=== PATIENT | female | born 2000 | race Caucasian/White ===

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

== ENCOUNTER 2021-12-11 13:33 | Emergency (ER) | payer OTHER ==
[2021-12-11 14:10] VITALS: TEMP 98.3
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
[2021-12-11] MEDS ORDERED: SODIUM CHLORIDE 0.9% 1,000 ML IV STA (16:35)
[2021-12-11] MEDS ORDERED: traMADol 50 MG TAB PO STA (16:37)
[2021-12-11] MEDS ORDERED: BEBTELOVIMAB (EUA) 175 MG/2 ML VIAL IV ONE (18:00)
[2021-12-11 18:24] VITALS: BP 124/62; PULSE 87; RESP 18
== END 2021-12-11 18:24 | disposition home or self-care (01) ==
LOC: EC 13:33
DX: U07.1 COVID-19 (principal); H92.01 Otalgia, right ear; J45.909 Unspecified asthma, uncomplicated
CPT/HCPCS: 87635; 96360; 99284

== ENCOUNTER 2022-02-26 07:42 | Emergency (ER) | payer OTHER ==
[2022-02-26 07:46] VITALS: BP 127/73; PULSE 79; RESP 16; TEMP 98.5
--- NOTE | 2022-02-26 08:35 | XR ---
EXAMINATION TYPE: XR chest 2V DATE OF EXAM: 02/26/2022 COMPARISON: NONE TECHNIQUE: PA and lateral views submitted. HISTORY: Cough FINDINGS: The lungs are clear and there is no pneumothorax, pleural effusion, or focal pneumonia. Heart size normal. Slightly coarsened interstitium although there is reduced inspiration. Scoliotic curvature of the spine. No overt failure. IMPRESSION: 1. Central interstitial prominence could be related to reduced inspiration correlate clinically to ex clude an interstitial pneumonitis or bronchitis..
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
== END 2022-02-26 09:09 | disposition home or self-care (01) ==
LOC: EC 07:42
DX: J45.909 Unspecified asthma, uncomplicated (principal); J06.9 Acute upper respiratory infection, unspecified; F17.290 Nicotine dependence, other tobacco product, uncomplicated; F12.90 Cannabis use, unspecified, uncomplicated; Z79.51 Long term (current) use of inhaled steroids; Z79.899 Other long term (current) drug therapy; Z20.822 Contact with and (suspected) exposure to COVID-19
CPT/HCPCS: 71046; 87635; 99284

== ENCOUNTER → 2022-10-01 | Outpatient (CLI) | payer OTHER ==
--- NOTE | 2022-10-01 16:10 | US ---
EXAMINATION TYPE: US OB >= 14 wk fetus DATE OF EXAM: 10/01/2022 COMPARISON: None CLINICAL INDICATION: Female, 21 years old with history of Z36.89 CONFIRM GESTATIONAL AGE AND VIABILIT Y; Viability. . TECHNIQUE: Transabdominal (TA) GESTATIONAL AGE / DATING Physician Established: Not yet established Dates by LMP: (15 weeks/3 days) EDC: 03/22/2023 Dates by First Scan: This is first scan Dates by Current Scan: (15 weeks/3 days) EDC: 03/22/2023 SURVEY IUP: Single PLACENTA: Anterior-Fundal PREVIA: No Previa HEYDI: 11.8 cm Normal CERVICAL LENGTH (transabdominal: norm > 3.0cm): 3.4 cm BIOMETRY PRESENTATION: Breech BPD: 2.8 cm 15 weeks / 1 day HC: 10.8 cm 15 weeks / 2 days AC: 9.4 cm 15 weeks / 4 days FL: 1.8 cm 15 weeks / 3 days ESTIMATED WEIGHT IN GRAMS: 123 grams ESTIMATED WEIGHT IN LBS/OZ: 0 lbs. 4 oz. WEIGHT PERCENTAGE BASED ON ESTABLISHED DATES: 37% HC/AC: 1.15 Normal FL/AC: 19% HEART RATE: 146 bpm RHYTHM: Normal MATERNAL WALL MEASUREMENT: 4.1 cm from skin to anterior uterine wall (if exam limited due to body hab itus). *Limited head imaging due to position and patient body habitus. IMPRESSION: 1. Single live intrauterine with estimated gestational age of 15 weeks 3 days by LMP. Curre nt ultrasound biometry is exactly concordant. 2. EFW percentile at 37%. 3. Complete survey recommended at 18-20 weeks.
== END | disposition home or self-care (01) ==
LOC: RADUSWWP 14:56
PROVIDERS: ATTEND Obstetrics & Gynecology
DX: Z36.89 Encounter for other specified antenatal screening (principal); Z3A.16 16 weeks gestation of pregnancy
CPT/HCPCS: 76805

== ENCOUNTER 2023-03-20 06:00 | Inpatient (IN) | payer OTHER ==
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
[2023-03-20] MEDS ORDERED: METHYLERGONOVINE 0.2 MG/ML 1 ML AMP IM PRN ×2 (06:30→07:56)
[2023-03-20] MEDS ORDERED: LACTATED RINGERS 1,000 ML IV SCH (06:30)
[2023-03-20] MEDS ORDERED: miSOPROStoL 200 MCG TAB PO PRN ×2 (06:30→07:56)
[2023-03-20] MEDS ORDERED: CARBOPROST TROMETHAMINE 250 MCG/ML 1 ML AMP IM PRN ×2 (06:30→07:56)
[2023-03-20] MEDS ORDERED: TRANEXAMIC 1,000 MG/100ML-NACL 1,000 MG in EMPTY BAG 1 BAG IV PRN ×2 (06:30→07:56)
[2023-03-20] MEDS ORDERED: LIDOCAINE 0.5% (PF) 5 MG/ML (50 ML SDV) SQ PRN ×2 (06:30→07:56)
[2023-03-20] MEDS ORDERED: OXYTOCIN 10 UNIT/ML 1 ML VIAL IM PRN ×2 (06:30→07:56)
[2023-03-20] MEDS ORDERED: TERBUTALINE 1 MG/ML VIAL SQ PRN ×2 (06:30→07:56)
[2023-03-20] MEDS ORDERED: OXYTOCIN 30 UNITS/500 ML NS 30 UNIT in SALINE 1 500ML.BAG IV SCH ×2 (06:30→07:56)
[2023-03-20 06:43] LABS: Basophils % (A) 0 %; Eosinophils # (A) 0.1 k/uL (0-0.7); Eosinophils % (A) 1 %; HCT 36.1 % (34.0-46.0); HGB 12.2 gm/dL (11.4-16.0); Lymphocytes # (A) 2.3 k/uL (1.0-4.8); Lymphocytes % (A) 25 %; MCH 29.1 pg (25.0-35.0); MCHC 33.7 g/dL (31.0-37.0); MCV 86.5 fL (80.0-100.0); Mean Platelet Volume 8.4; Monocytes # (A) 0.5 k/uL (0-1.0); Monocytes % (A) 5 %; Neutrophils # (A) 6.1 k/uL (1.3-7.7); Neutrophils % (A) 67 %; Platelet Count 200 k/uL (150-450); RBC 4.17 m/uL (3.80-5.40); RDW 14.9 % (11.5-15.5)
[2023-03-20] MEDS ORDERED: LIDOCAINE 1% (10MG/ML) FOR IV START INTRADERMA PRN (07:56)
[2023-03-20] MEDS ORDERED: fentaNYL (PF) 50 MCG/ML 5 ML AMP ONE (10:25)
[2023-03-20] MEDS ORDERED: SODIUM CHLORIDE 0.9% 250 ML BAG ONE (10:25)
[2023-03-20] MEDS ORDERED: ROPIVACAINE 5 MG/ML 30 ML VIAL ONE (10:25)
[2023-03-20] MEDS ORDERED: BENZOCAINE/MENTHOL SPRAY 1 GM/SPRAY AEROSOL TOPICAL PRN (15:44)
[2023-03-20] MEDS ORDERED: ACETAMINOPHEN TAB 325 MG TAB PO PRN (15:44)
[2023-03-20] MEDS ORDERED: diphenhydrAMINE 25 MG CAP PO PRN (15:44)
[2023-03-20] MEDS ORDERED: ZOLPIDEM 5 MG TAB PO PRN (15:44)
[2023-03-20] MEDS ORDERED: diphenhydrAMINE 50 MG CAP PO PRN (15:44)
[2023-03-20] MEDS ORDERED: IBUPROFEN 600 MG TAB PO PRN (15:44)
[2023-03-20] MEDS ORDERED: SIMETHICONE 80 MG CHEWABLE PO PRN (15:44)
[2023-03-20] MEDS: LACTATED RINGERS 1,000 ML IV SCH (17:35)
--- NOTE | 2023-03-20 18:49 | P.PROBDLV ---
Vaginal Delivery Note - . Vaginal Delivery Note: The patient progressed to complete dilation after oxytocin induction of labor and artificial rupture membranes with clear fluid noted. She did receive epidural anesthesia. Once reaching complete, she began pushing. 's head came to a crown. With one further push, the infant's head delivered across the perineum and a left occiput anterior lie. With one further push and legs in a flexed position, the anterior shoulder easily delivered followed by the remaind er the . Nuchal cord times one was reduced around the infant's head prior to delivery. Nose and mouth were bulb suctioned immediately after delivery. It was placed on mother's abdomen. Terminal meconium was noted. Cord was clamped and cut and was taken to warmer for evaluation. A viable male was noted with scores of 7 at 1 minute and 8 at 5 minutes and weight of 7 pounds 1.6 ounces. Placenta delivered shortly thereafter, intact, with a three-vessel cord. Uterus contracted well after oxytocin was given and uterine massage was carried out. Inspection of the perineum revealed bilateral periurethral abrasions but no active bleeding. Estimated blood loss is approximately 100 mL's. Both mother and infant are in stable condition.
[2023-03-21] MEDS: SENNOSIDES-DOCUSATE SODIUM 1 EACH TAB PO SCH ×2 (02:56→08:03)
[2023-03-21 08:06] VITALS: BP 113/76; PULSE 98; RESP 15; TEMP 98.1
--- NOTE | 2023-03-21 08:35 | P.DS ---
Providers Date of admission: 03/20/23 06:01 Expected date of discharge: 03/21/23 Attending physician: Rajani Tirado Primary care physician: Stated None - Discharge Diagnosis(es) (1) 39 weeks gestation of Current Visit: No Status: Acute Hospital Course: This is a 22-year-old female 1 para 0 at 39-5/7 weeks who presented for induction of labor. She underwent oxytocin induction of labor and delivered vaginally a viable male with scores of 7 at 1 minute and 8 at 5 minutes and infant weight of 7 pounds 1.6 ounces. Her course has been uncomplicated. Lochia has been decreasing. Her pain is well-controlled without any pain medication. She is bottle feeding. Vital signs are stable. Abdomen is soft with fundus firm and nontender. Extremity show negative Homans. Impression is status post vaginal delivery day #1. Plan is discharge home today. Routine instructions are given. Is advised to follow up in the office in 6 weeks for check. She is advised to call the office if she has any further questions or concerns prior to her appointment time. She will be given a prescription for ibuprofen. Procedures: Oxytocin induction of labor Spontaneous vaginal delivery of a viable male on 03/20/2023 Patient Condition at Discharge: Stable Plan - Discharge Summary Discharge Rx Participant: No New Discharge Prescriptions: New Ibuprofen [Motrin] 600 mg PO Q6HR PRN #60 tab PRN Reason: Mild Pain (Scale 1 To 3) Discharge Medication List Ibuprofen [Motrin] 600 mg PO Q6HR PRN #60 tab 03/21/23 [Rx] Follow up Appointment(s)/Referral(s): Rajani Tirado DO [Doctor of Osteopathic Medicine] - 1 Week (PP 05/01/2023 @4:00pm) Activity/Diet/Wound Care/Special Instructions: Instructions 1. Do not begin any exercise program for 3 weeks. 2. Do not resume sexual relations for 3 weeks or longer if uncomfortable. 3. You may take tub baths or showers at any time. 4. You may use tampons if desired after 3 weeks. 5. Keep the area of episiotomy (stitches) clean and dry. 6. If you are not nursing, wear a good fitting, supportive bra during the day and limit fluid intake for at least 1 week to prevent breast engorgement. 7. Call the office, [phone], within the next week to make appointment for your 6 week checkup if it has not already been made. 8. Report any of the following occurrences to the doctor promptly: a. Heavy, excessive bleeding b. Chills, fever c. Burning or frequency of urination d. Pain or redness and breasts if nursing e. Increasing pain or swelling in episiotomy (stitches). In addition to the above instructions, the following additional should be followed: 1. No heavy lifting or straining (exercising) until after 6 week checkup. 2. Keep abdominal incision clean and dry: You may wear a dressing if more comfortable. 3. Make office appointment for 10 days after going home or as instructed by her doctor. Discharge Disposition: HOME SELF-CARE
[2023-03-21 08:48] LABS: Basophils % (A) 0 %; Eosinophils # (A) 0.1 k/uL (0-0.7); Eosinophils % (A) 1 %; HCT 35.3 % (34.0-46.0); HGB 11.3 gm/dL (11.4-16.0); Lymphocytes # (A) 2.6 k/uL (1.0-4.8); Lymphocytes % (A) 27 %; MCH 28.5 pg (25.0-35.0); MCHC 32.1 g/dL (31.0-37.0); MCV 88.8 fL (80.0-100.0); Mean Platelet Volume 8.7; Monocytes # (A) 0.5 k/uL (0-1.0); Monocytes % (A) 5 %; Neutrophils # (A) 6.1 k/uL (1.3-7.7); Neutrophils % (A) 63 %; Platelet Count 167 k/uL (150-450); RBC 3.97 m/uL (3.80-5.40); RDW 15.2 % (11.5-15.5); WBC 9.6 k/uL (3.8-10.6)
== END 2023-03-21 15:03 | disposition home or self-care (01) | DRG 560 ==
LOC: 4FBP 06:01
PROVIDERS: ADMIT Obstetrics & Gynecology; ATTEND Obstetrics & Gynecology
PROC: 10E0XZZ Delivery of Products of Conception, External Approach (ICD-10-PCS; principal; 2023-03-20)
PROC: 3E0DXGC Introduction of Other Therapeutic Substance into Mouth and Pharynx, External Approach (ICD-10-PCS; 2023-03-20)
PROC: 10907ZC Drainage of Amniotic Fluid, Therapeutic from Products of Conception, Via Natural or Artificial Opening (ICD-10-PCS; 2023-03-20)
PROC: 3E033VJ Introduction of Other Hormone into Peripheral Vein, Percutaneous Approach (ICD-10-PCS; 2023-03-20)
DX: O99.214 Obesity complicating childbirth (principal); Z37.0 Single live birth; J45.909 Unspecified asthma, uncomplicated; O69.81X0 Labor and delivery complicated by cord around neck, without compression, not applicable or unspecified; O99.52 Diseases of the respiratory system complicating childbirth; O77.0 Labor and delivery complicated by meconium in amniotic fluid; Z3A.39 39 weeks gestation of pregnancy; Z28.311 Partially vaccinated for COVID-19; Z87.891 Personal history of nicotine dependence
CPT/HCPCS: 85025; 86850; 86900; 86901